=== PATIENT | male | born 1945 | race Caucasian/White ===

== ENCOUNTER 2016-08-24 08:33 | Day surgery (SDC) | payer MEDICARE, MEDICAID ==
[~2016-08-24] VITALS: Ht 160 cm; Wt 70.3 kg
[~2016-08-24 08:33] MED LIST: ASPI-986 PO; ATOR20TA65 PO; CARV3.1242; CLOP75TA2 PO; METF25CR; PANT40TA4 PO; SPIR25TA
[2016-08-24] MEDS ORDERED: RANO500T3 PO (09:05)
[2016-08-24] MEDS ORDERED: METF10002 PO (09:05)
[2016-08-24] MEDS ORDERED: SITA100T6 PO (09:05)
[2016-08-24] MEDS ORDERED: LOSA50TA20 PO (09:05)
[2016-08-24] MEDS ORDERED: ASPI-1159 PO (09:05)
[2016-08-24 09:13] LABS: HEMATOCRIT 41.7 % (42.0-52.0); HEMOGLOBIN 14.2 g/dL (14.0-18.0); MEAN CORPUSCULAR HEMOGLOBIN 31.5 pg (28.0-32.0); MEAN CORPUSCULAR VOLUME 92.1 fL (80.0-94.0); PLATELET 196 x1000/uL (130-400); RED BLOOD CELL COUNT 4.53 mill/uL (4.7-6.1); RED CELL DISTRIBUTION WIDTH 12.5 % (11.6-14.6)
[2016-08-24] MEDS ORDERED: ASPIRIN/SOD BICARB/CITRIC ACID 324MG TAB EFF ONE (09:15)
[2016-08-24 09:24] LABS: CHLORIDE 104 mEq/L (98-107); INR 1.1; PROTHROMBIN TIME 11.5 sec
[2016-08-24 09:28] LABS: CARBON DIOXIDE 26 mEq/L (21-32)
[2016-08-24] MEDS ORDERED: MIDAZOLAM HCL 2 MG/2 ML VIAL ONE (09:35)
[2016-08-24] MEDS ORDERED: IODIXANOL 320MG/ML 100 ML BOTTLE IV ONE (09:35)
[2016-08-24] MEDS ORDERED: FENTANYL CITRATE/PF 50MCG/ML 2ML VIAL ONE (09:35)
[2016-08-24] MEDS ORDERED: LIDOCAINE HCL 1% 20ML VIAL (Pyxis) INJ ONE (09:36)
[2016-08-24] MEDS ORDERED: CEFAZOLIN 1000MG PREMIX 50 ML IV ONE (10:18)
[2016-08-24] MEDS ORDERED: ACETAMINOPHEN 325MG TABLET PO PRN (10:30)
[2016-08-24] MEDS ORDERED: MORPHINE SULFATE 2 MG/ML CPJ (NOT FOR IM USE) IV PRN (10:30)
[2016-08-24] MEDS ORDERED: ATROPINE SULFATE 1MG/10ML SYR IV PRN (10:30)
[2016-08-24] MEDS ORDERED: ONDANSETRON HCL 4MG/2ML VIAL IV PRN (10:30)
[2016-08-24] MEDS ORDERED: SODIUM CHLORIDE 0.45% 1,000 ML IV ONE (10:30)
[2016-08-24] MEDS ORDERED: HEPARIN SODIUM 1,000 UNIT/1ML VIAL IV ONE (13:06)
== END 2016-08-24 18:10 | disposition home or self-care (01) ==
LOC: CCL 08:33
PROVIDERS: ATTEND Specialist
DX: I73.9 Peripheral vascular disease, unspecified (principal); I25.10 Atherosclerotic heart disease of native coronary artery without angina pectoris; I25.5 Ischemic cardiomyopathy; Z95.5 Presence of coronary angioplasty implant and graft; I25.2 Old myocardial infarction; E11.9 Type 2 diabetes mellitus without complications; I10 Essential (primary) hypertension; Z95.810 Presence of automatic (implantable) cardiac defibrillator; Z79.82 Long term (current) use of aspirin; Z79.899 Other long term (current) drug therapy
CPT/HCPCS: 36247; 36415; 75710; 80048; 85027; 85610; 85730; 99152; 99153; C1760; C1769; C1893; J0690; J1644; J2250; J3010; J3490; Q9967

== ENCOUNTER → 2021-03-24 | Outpatient (CLI) | payer MEDICARE, MEDICAID ==
[~2021-03-24] MED LIST changes: +ASPI-1497 PO; +CARV6.2548 PO; +CLOP-31 PO; -CLOP75TA2 PO; +DAPA5TAB PO; +LOSA50TA41 PO; +METF-416 PO; -PANT40TA4 PO; +PANT40TA51 PO; +RANO500T3 PO; +SITA100T11 PO; +SPIR25TA6 PO
== END | disposition home or self-care (01) ==
LOC: LAB 11:41
PROVIDERS: ATTEND Ophthalmology
DX: Z01.812 Encounter for preprocedural laboratory examination (principal); Z20.822 Contact with and (suspected) exposure to COVID-19; H26.9 Unspecified cataract
CPT/HCPCS: 87426

== ENCOUNTER 2021-03-25 06:33 | Day surgery (SDC) | payer MEDICARE, MEDICAID ==
[~2021-03-25] VITALS: Ht 160 cm; Wt 54.4 kg
[~2021-03-25 06:33] MED LIST changes: -CARV6.2548 PO; -DAPA5TAB PO; -SPIR25TA6 PO
[2021-03-25 07:54] LABS: BASOPHILS % 0.5 % (0.0-2.0); HEMATOCRIT. 49.9 % (42.0-52.0); HEMOGLOBIN. 16.9 g/dL (14.0-18.0); LYMPHOCYTES % 22.7 % (20.0-50.0); MEAN CORPUSCULAR HEMOGLOBIN 30.8 pg (28.0-32.0); MEAN CORPUSCULAR VOLUME 90.9 fL (80.0-94.0); MEAN PLATELET VOLUME 9.4 fl (7.4-10.4); MONOCYTES % 8.1 % (2.0-8.0); NEUTROPHILS % 67.7 % (40.0-76.0); PLATELET 170 x1000/uL (130-400); RED BLOOD CELL COUNT 5.49 mill/uL (4.7-6.1); RED CELL DISTRIBUTION WIDTH 12.4 % (11.6-14.6)
[2021-03-25 07:58] LABS: CHLORIDE 108 mEq/L (98-107)
[2021-03-25] MEDS ORDERED: SODIUM CHLORIDE 0.9% 1,000 ML IV SCH (08:00)
[2021-03-25] MEDS ORDERED: TETRACAINE 0.5% OPHTH DROPS 4ML ONE (08:20)
[2021-03-25] MEDS ORDERED: BALANCED SALT IRRIG SOLN 15ML ONE (08:20)
[2021-03-25] MEDS ORDERED: ACETYLCHOLINE CHLORIDE INTRAOCULAR SOLUTION 1:100 ELECTROLYTE DILUENT IO ONE (08:20)
[2021-03-25] MEDS ORDERED: TROPICAMIDE 1% OPHTH DROPS 15ML ONE (08:20)
[2021-03-25] MEDS ORDERED: PHENYLEPHRINE HCL 2.5% OPHTH DROPS 2ML ONE (08:20)
[2021-03-25] MEDS ORDERED: BUPIVACAINE HCL/PF 0.75% (7.5MG/ML) 10ML ONE (08:20)
[2021-03-25] MEDS ORDERED: LIDOCAINE HCL 2%/EPINEPHRINE 1:100,000 20 ML VIAL INFIL ONE (08:20)
[2021-03-25] MEDS ORDERED: DAPA5TAB PO (08:38)
[2021-03-25] MEDS ORDERED: CARV6.2548 PO (08:38)
[2021-03-25] MEDS ORDERED: SPIR25TA6 PO (08:38)
[2021-03-25] MEDS ORDERED: BALANCED SALT IRRIG SOLN COMB1 500ML OP NR (09:00)
[2021-03-25] MEDS ORDERED: TOBRAMYCIN/DEXAMETH 0.1/0.3% OPHTH SUSP 2.5ML ONE (09:24)
[2021-03-25] MEDS ORDERED: FENTANYL CITRATE/PF 50MCG/ML 2ML VIAL ONE (09:33)
[2021-03-25] MEDS ORDERED: MIDAZOLAM HCL 2 MG/2 ML VIAL ONE (09:33)
[2021-03-25] MEDS ORDERED: PROPOFOL 200MG/20ML VIAL IV ONE (09:33)
[2021-03-25] MEDS ORDERED: DEXAMETHASONE 4MG/ML 1ML VIAL ONE (09:39)
[2021-03-25] MEDS ORDERED: HYDROMORPHONE HCL/PF 2MG/ML CPJ IV PRN (09:45)
[2021-03-25] MEDS ORDERED: LABETALOL 5MG/ML SYR 20 MG/4 ML SYRINGE IV PRN (09:45)
[2021-03-25] MEDS ORDERED: ONDANSETRON HCL 4MG/2ML INJ IV PRN (09:45)
[2021-03-25] MEDS ORDERED: MEPERIDINE HCL/PF 25MG/ML CPJ IV PRN (09:45)
[2021-03-25] MEDS ORDERED: HYALURONATE SODIUM 10 MG/ML 0.55ML SYRINGE IO ONE (10:33)
== END 2021-03-25 12:10 | disposition home or self-care (01) ==
LOC: OR 06:33
PROVIDERS: ATTEND Ophthalmology
DX: E11.36 Type 2 diabetes mellitus with diabetic cataract (principal); H25.89 Other age-related cataract; I11.0 Hypertensive heart disease with heart failure; I50.9 Heart failure, unspecified; I25.10 Atherosclerotic heart disease of native coronary artery without angina pectoris; I25.2 Old myocardial infarction; E78.00 Pure hypercholesterolemia, unspecified; Z79.82 Long term (current) use of aspirin; Z79.84 Long term (current) use of oral hypoglycemic drugs; Z79.899 Other long term (current) drug therapy; Z98.890 Other specified postprocedural states
CPT/HCPCS: 36415; 66984; 80048; 82962; 85025; 93005; J1100; J2250; J2405; J2704; J3010; J3490; V2632

== ENCOUNTER → 2021-06-09 | Day surgery (SDC) | payer MEDICARE, MEDICAID ==
[~2021-06-09] MED LIST changes: +ACETAMINOPHEN 325MG TABLET PO PRN; -ASPI-986 PO; +ASPIRIN/SOD BICARB/CITRIC ACID 324MG TAB EFF ONE; -CARV3.1242; +CARV6.2548 PO; +DAPA5TAB PO; +FENTANYL CITRATE/PF 50MCG/ML 2ML VIAL ONE; +INSU300I3 SQ; +IODIXANOL 320MG/ML 100 ML BOTTLE IV ONE; +LIDOCAINE HCL 1% 20ML VIAL (Pyxis) INJ ONE; -LOSA50TA41 PO; -METF-416 PO; -METF25CR; +MIDAZOLAM HCL 2 MG/2 ML VIAL ONE; +MORPHINE SULFATE 2 MG/ML CPJ (NOT FOR IM USE) IV PRN; +NALOXONE HCL 0.4MG/ML VIAL IV PRN; +ONDANSETRON HCL 4MG/2ML INJ IV PRN; -SITA100T11 PO; +SITA1TAB6 PO; -SPIR25TA; +SPIR25TA6 PO
== END | disposition home or self-care (01) ==
LOC: CCL 06:52
PROVIDERS: ATTEND Specialist
DX: I73.9 Peripheral vascular disease, unspecified (principal); I25.5 Ischemic cardiomyopathy; I11.0 Hypertensive heart disease with heart failure; I50.9 Heart failure, unspecified; I25.10 Atherosclerotic heart disease of native coronary artery without angina pectoris; E78.2 Mixed hyperlipidemia; E11.9 Type 2 diabetes mellitus without complications; I25.2 Old myocardial infarction; Z79.899 Other long term (current) drug therapy; Z79.84 Long term (current) use of oral hypoglycemic drugs; Z98.890 Other specified postprocedural states; Z20.822 Contact with and (suspected) exposure to COVID-19
CPT/HCPCS: 36246; 75710; 87426; 99152; 99153; C1725; C1760; C1769; C1893; J1644; J2250; J3010; J3490; Q9967; G0500

== ENCOUNTER → 2023-02-09 | Day surgery (SDC) | payer MEDICARE, MEDICAID ==
[~2023-02-09] VITALS: Ht 160 cm; Wt 60.8 kg
[~2023-02-09] MED LIST changes: +ATOR20TA PO; +ATOR40TA70 PO; +ATROPINE SULFATE 1MG/10ML SYR IV PRN; +DAPA10TA PO; +DEXT 5%/0.9% NACL 500 ML IV ONE; +DEXTROSE 50% WATER 50ML SYRINGE IV ONE; +GABA-529 PO; +HEPARIN 1000 UNITS/ML 10ML ONE; +INSU100I24 SQ; +METF-414 PO; +SITA100T11 PO
== END | disposition home or self-care (01) ==
LOC: CCL 10:15
PROVIDERS: ATTEND Specialist
DX: E11.51 Type 2 diabetes mellitus with diabetic peripheral angiopathy without gangrene (principal); E78.5 Hyperlipidemia, unspecified; I42.8 Other cardiomyopathies; I25.10 Atherosclerotic heart disease of native coronary artery without angina pectoris; Z79.899 Other long term (current) drug therapy; Z98.890 Other specified postprocedural states; Z79.82 Long term (current) use of aspirin; Z79.84 Long term (current) use of oral hypoglycemic drugs
CPT/HCPCS: 82962; 85347; 36246; 75710; C1893; C1760; C1725; J3010; Q9967; J3490 ×2; J1644 ×2; J2250; Z7610 ×6; C1769; 99152; 99153; G0500